=== PATIENT | female | born 1940 | race African-American/Black ===

== ENCOUNTER 2021-07-21 07:29 | Day surgery (SDC) | payer OTHER ==
[2021-07-19 16:52] VITALS: BMI 31.4
[2021-07-21] MEDS ORDERED: CIPROFLOXACIN 0.3% EYE DROPS 5 ML BOTTLE ONE (07:48)
[2021-07-21] MEDS ORDERED: TROPICAMIDE 1% OPHTH SOLN 15 ML BOTTLE ONE (07:48)
[2021-07-21] MEDS ORDERED: CYCLOPENTOLATE 2% OPHTH SOLN 2 ML BOTTLE ONE (07:48)
[2021-07-21] MEDS ORDERED: PHENYLEPHRINE 2.5% OPHTH SOLN 15 ML BOTTLE ONE (07:48)
[2021-07-21] MEDS ORDERED: TROPICAMIDE 1% OPHTH SOLN 15 ML BOTTLE OD ONE ×3 (08:10→08:20)
[2021-07-21] MEDS ORDERED: PHENYLEPHRINE 2.5% OPHTH SOLN 15 ML BOTTLE OD ONE ×3 (08:10→08:20)
[2021-07-21] MEDS ORDERED: CYCLOPENTOLATE 2% OPHTH SOLN 2 ML BOTTLE OD ONE ×2 (08:10→08:15)
[2021-07-21] MEDS ORDERED: CIPROFLOXACIN 0.3% EYE DROPS 5 ML BOTTLE OD ONE ×3 (08:10→08:20)
[2021-07-21] MEDS ORDERED: CYCLOPENTOLATE HCL 1% OPHTH SOLN 2 ML BOTTLE OD ONE (08:20)
[2021-07-21] MEDS ORDERED: MIDAZOLAM HCL 2 MG/2 ML SINGLE DOSE VIAL ONE (09:13)
[2021-07-21] MEDS ORDERED: TETRACAINE 0.5% OPHTH SOLN 2 ML BOTTLE ONE (09:23)
[2021-07-21] MEDS ORDERED: LIDOCAINE 1% P/F 10 MG/ML VIAL ONE (09:23)
[2021-07-21] MEDS ORDERED: NEO/POLYMYX B SULF/DEXAMETH OPHTHALMIC 5ML BOTTLE ONE (09:23)
[2021-07-21] MEDS ORDERED: BSS (NA/CA/MG/K) BALANCED SALT SOLUTION OPHTH SOLN 15 ML BOTTLE ONE (09:23)
[2021-07-21] MEDS ORDERED: CARBACHOL 0.01% INTRA-OCULAR 1.5 ML VIAL ONE (09:23)
[2021-07-21 10:14] VITALS: BP 137/71; PULSE 66; TEMP 97.9
== END 2021-07-21 10:35 | disposition home or self-care (01) ==
LOC: FASU 07:29
PROVIDERS: ATTEND Ophthalmology
PROC: 08RJ3JZ Replacement of Right Lens with Synthetic Substitute, Percutaneous Approach (ICD-10-PCS; principal; 2021-07-21 09:41)
DX: H26.8 Other specified cataract (principal)

== ENCOUNTER 2021-09-15 08:09 | Day surgery (SDC) | payer OTHER ==
[2021-09-14 13:29] VITALS: BMI 30.9
[2021-09-15] MEDS: TROPICAMIDE 1% OPHTH SOLN 15 ML BOTTLE ONE ×3 (08:50→09:00)
[2021-09-15] MEDS: CIPROFLOXACIN 0.3% EYE DROPS 5 ML BOTTLE ONE ×3 (08:50→09:00)
[2021-09-15] MEDS: CYCLOPENTOLATE 2% OPHTH SOLN 2 ML BOTTLE ONE ×3 (08:50→09:00)
[2021-09-15] MEDS: PHENYLEPHRINE 2.5% OPHTH SOLN 15 ML BOTTLE ONE ×3 (08:50→09:00)
[2021-09-15 08:56] VITALS: TEMP 97.9
[2021-09-15] MEDS ORDERED: NEO/POLYMYX B SULF/DEXAMETH OPHTHALMIC 5ML BOTTLE ONE (10:00)
[2021-09-15] MEDS ORDERED: BSS (NA/CA/MG/K) BALANCED SALT SOLUTION OPHTH SOLN 15 ML BOTTLE ONE (10:00)
[2021-09-15] MEDS ORDERED: LIDOCAINE 1% P/F 10 MG/ML VIAL ONE (10:00)
[2021-09-15] MEDS ORDERED: TETRACAINE 0.5% OPHTH SOLN 2 ML BOTTLE ONE (10:00)
[2021-09-15] MEDS ORDERED: CARBACHOL 0.01% INTRA-OCULAR 1.5 ML VIAL ONE (10:00)
[2021-09-15] MEDS ORDERED: EPINEPHrine/PF 1 MG/1 ML (1:1,000) AMPULE ONE (10:00)
[2021-09-15] MEDS ORDERED: MIDAZOLAM HCL 2 MG/2 ML SINGLE DOSE VIAL ONE (10:11)
[2021-09-15 11:48] VITALS: BP 141/67; PULSE 64
== END 2021-09-15 11:50 | disposition home or self-care (01) ==
LOC: FASU 08:09
PROVIDERS: ATTEND Ophthalmology
PROC: 08RK3JZ Replacement of Left Lens with Synthetic Substitute, Percutaneous Approach (ICD-10-PCS; principal; 2021-09-15 10:14)
DX: H26.8 Other specified cataract (principal)